=== PATIENT | male | born 1960 | race Native Hawaiian/Other Pacific Islander ===

== ENCOUNTER 2017-12-19 07:30 | Day surgery (SDC) | payer SELFPAY ==
[2017-12-19 08:05] VITALS: BMI 25.6
[2017-12-19] MEDS ORDERED: Lactated Ringer's 1,000 ML IV ONE (08:37)
[2017-12-19 09:24] LABS: BLOOD UREA NITROGEN 10 mg/dl (9-20); CALCIUM 9.6 mg/dL (8.4-10.2); GFR AFRICAN-AMERICAN > 60; GFR NON-AFRICAN AMERICAN > 60
[2017-12-19] MEDS ORDERED: cefTRIAXone (Rocephin) 1 gm Inj ONE (10:56)
[2017-12-19] MEDS ORDERED: Propofol 10 mg/ml Inj (20 ML) ONE (10:56)
[2017-12-19] MEDS ORDERED: Midazolam 2 MG/2 ML VIAL ONE (10:57)
[2017-12-19] MEDS ORDERED: Bupivacaine 0.5% Inj(30mL) ONE (11:01)
[2017-12-19] MEDS ORDERED: Lactated Ringer's 1,000 ML IV SCH (11:40)
[2017-12-19 12:11] VITALS: RESP 18
--- NOTE | 2017-12-19 13:29 | OP ---
PROCEDURE DATE: 12/19/2017 PREOPERATIVE DIAGNOSIS: Phimosis. POSTOPERATIVE DIAGNOSIS: Phimosis. PROCEDURE PERFORMED: Circumcision under general anesthesia. DESCRIPTION OF PROCEDURE: The patient was placed in the operating room table in a supine position. The area of the groin was draped and prepped in a sterile manner. At this time, circumferential incisions were made around the redundant foreskin. The excess foreskin was removed at this time the foreskin was cauterized. The redundant tissue was removed. Bleeders were cauterized and then skin edges were approximated with multiple interrupted 4-0 Chromic sutures. Once this was done, compressive dressing was taken around the dressing and he was taken from the operating room in good condition. Stephenie Casey MD
[2017-12-19 15:24] VITALS: BP 135/90; PULSE 78; TEMP 97.5; O2SAT 100
== END 2017-12-19 15:25 | disposition home or self-care (01) ==
LOC: H.OPSURG 07:30
PROVIDERS: ATTEND Urology
DX: N47.1 Phimosis (principal); E11.9 Type 2 diabetes mellitus without complications; I10 Essential (primary) hypertension
CPT/HCPCS: 36415; 54161; 80048; 82948; 88304; J0696; J2001; J2250; J2270; J2704; J3010; J7120